=== PATIENT | male | born 1955 | race Caucasian/White ===

== ENCOUNTER 2017-02-06 20:36 | Emergency (ER) | payer MEDICAID ==
[~2017-02-06 20:36] MED LIST: MIRT15TA6 PO; QUET25TA PO
== END 2017-02-07 01:00 | disposition left against medical advice (07) ==
LOC: ER 02-07 00:37
DX: Z53.21 Procedure and treatment not carried out due to patient leaving prior to being seen by health care provider (principal)

== ENCOUNTER 2017-02-06 20:36 | Emergency (ER) | payer MEDICAID | END 2017-02-06 22:09 | disposition left against medical advice (07) | LOC: ER 20:36 | DX: Z53.21 Procedure and treatment not carried out due to patient leaving prior to being seen by health care provider (principal) ==